=== PATIENT | female | born 1955 | race Caucasian/White ===

== ENCOUNTER 2017-10-21 13:21 | Observation (INO) | payer MEDICARE ==
[2017-10-21] MEDS ORDERED: NS 0.9% 1000 ML* 1,000 ML IV ONE (13:58)
--- NOTE | 2017-10-21 14:25 | RAD ---
Indication: Dizziness, expressive aphasia improving. Code ocampo. Comparison: No relevant prior exams available on the [facility] for comparison. Technique: Noncontrast CT vertex of skull through foramen magnum. Report: The sulci, ventricles, and basal cisterns are normal for age. He matter white matter differentiation is preserved without evidence for edema. No intra or extra axial hemorrhage, mass, or fluid collection detected. Unremarkable visualized orbital contents. Unremarkable calvarium and skull base. Unremarkable scalp. The visualized paranasal sinuses and mastoid air spaces are clear. IMPRESSION: Negative for intracranial hemorrhage or CT stigmata of ischemic stroke. Negative exam. Results discussed with Dr. Larios 10/21/2017 2:16 PM EST
[2017-10-21 14:38] LABS: ABS Basophils 0 10^3/ul (0-0.2); ABS Eosinophils 0.1 10^3/ul (0-0.6); ABS Lymphocytes 2.7 10^3/ul (1.0-4.8); ABS Monocytes 0.6 10^3/ul (0-0.8); ABS Nucleated RBC 0 10^3/ul; Eosinophil % 1.3 % (0-6); Hematocrit 38 % (35-47); Hemoglobin 12.8 g/dl (12.0-16.0); Mean Corpuscular HGB Conc 33 g/dl (31-36); Mean Corpuscular Hemoglobin 30 pg (27-31); Mean Corpuscular Volume 90 fL (80-97); Mean Platelet Volume 8 um3 (7.4-10.4); Nucleated Red Blood Cells % 0; Platelet Count 300 10^3/ul (150-450); Red Blood Count 4.22 10^6/ul (4.0-5.4); Red Cell Distribution Width 15 % (10.5-15); White Blood Count 6.4 10^3/ul (3.5-10.8)
[2017-10-21] MEDS ORDERED: Ondansetron ODT TAB* 4 MG PO ONE (14:42)
[2017-10-21 14:47] LABS: INR 0.91 (0.77-1.02)
[2017-10-21 14:52] LABS: EGFR Non-African American 75.5 (>60)
[2017-10-21] MEDS ORDERED: LORazepam INJ* 2 MG/ML 1 ML VIAL IV PUSH ONE ×2 (15:23→20:56)
--- NOTE | 2017-10-21 15:41 | RAD ---
HISTORY: Neurological changes COMPARISONS: None VIEWS: 1: frontal portable view of the chest at 3:12 PM FINDINGS: LINES AND TUBES: None. CARDIOMEDIASTINAL SILHOUETTE: The cardiomediastinal silhouette is normal for portable technique. PLEURA: The costophrenic angles are sharp. No pleural abnormalities are noted. LUNG PARENCHYMA: The lungs are clear. ABDOMEN: The upper abdomen is clear. There is no subphrenic gas. BONES AND SOFT TISSUES: No bone or soft tissue abnormalities are noted. The patient is status post anterior cervical fusion. IMPRESSION: NO ACTIVE CARDIOPULMONARY DISEASE.
[2017-10-21 15:49] LABS: Urine Appearance Clear; Urine Blood Negative (Negative); Urine Color Yellow; Urine Ketones Negative (Negative); Urine Protein Negative (Negative); Urine Specific Gravity 1.009 (1.010-1.030); Urine Urobilinogen Negative (Negative)
[2017-10-21] MEDS ORDERED: Iohexol 350* (CONTRAST) 500 ML MDV IV ONE (16:02)
--- NOTE | 2017-10-21 16:32 | RAD ---
HISTORY: Speech difficulty, stroke COMPARISONS: Head CT dated October 21, 2017 TECHNIQUE: Multiple contiguous axial CT scans were obtained of the head and neck after the administration of nonionic intravenous contrast timed to the systemic arterial phase of contrast enhancement. Coronal and sagittal multiplanar reformations are submitted for review. Multiple 3-D maximum intensity projection reconstructions are also submitted for review. FINDINGS: CTA NECK: AORTIC ARCH: There is a normal three-vessel branching pattern of the aortic arch. There is no ostial or proximal stenosis of the cephalic great vessels. RIGHT VERTEBRAL ARTERY: The right vertebral artery is patent along its course, without stenosis. LEFT VERTEBRAL ARTERY: The left vertebral artery is patent along its course, without stenosis. DOMINANCE: The vertebral arteries are codominant. RIGHT COMMON CAROTID ARTERY: The right common carotid artery is patent. The right carotid bifurcation occurs at C3-C4 RIGHT INTERNAL CAROTID ARTERY: There is no right internal carotid artery stenosis by NASCET criteria. RIGHT EXTERNAL CAROTID ARTERY: The right external carotid artery is unremarkable. LEFT COMMON CAROTID ARTERY: The left common carotid artery is patent. The left carotid bifurcation occurs at C3-C4 LEFT INTERNAL CAROTID ARTERY: There is no left internal carotid artery stenosis by NASCET criteria. LEFT EXTERNAL CAROTID ARTERY: The left external carotid artery is unremarkable. VENOUS CIRCULATION: The venous system is unremarkable. SALIVARY GLANDS: The parotid glands, submandibular glands, sublingual glands are normal. NASAL CAVITY/NASOPHARYNX: The nasal cavity and nasopharynx are normal. ORAL CAVITY/OROPHARYNX: The oral cavity is obscured by streak artifact from dental amalgam. The visualized oral cavity and oropharynx are unremarkable. LARYNGEAL APPARATUS/HYPOPHARYNX: The laryngeal apparatus and hypopharynx are normal. UPPER AIRWAY/UPPER ESOPHAGUS: The visualized upper airway and esophagus are normal. LUNG APICES: The lung apices are clear. THYROID GLAND: There is a 0.6 cm nodule of the right thyroid. LYMPH NODES: There is no lymphadenopathy by size criteria. BONES AND SOFT TISSUES: The patient is status post anterior cervical fusion. CTA HEAD: INTRACRANIAL CIRCULATION: There is no aneurysm, vascular malformation, occlusion, or stenosis of the visualized intracranial circulation. The anterior communicating artery complex is clear. Bilateral posterior communicating arteries are identified. VENOUS CIRCULATION: The venous system is unremarkable. PERFUSION: There is no obvious parenchymal perfusion deficit. HEMORRHAGE/INFARCT: There is no hemorrhage or acute infarct. MASSES/SHIFT: There is no mass or shift. EXTRA-AXIAL SPACES: There are no extra-axial fluid collections. SULCI AND VENTRICLES: The sulci and ventricles are normal in size and position for the patient's stated age. CEREBRUM: There are no focal parenchymal abnormalities. BRAINSTEM: There are no focal parenchymal abnormalities. CEREBELLUM: There are no focal parenchymal abnormalities. PARANASAL SINUSES: The paranasal sinuses are clear. ORBITS: The orbits are unremarkable. BONES AND SOFT TISSUE: No bone or soft tissue abnormalities are noted. OTHER: There is no abnormal enhancement. IMPRESSION: 1. NO INTERNAL CAROTID ARTERY STENOSIS BY NASCET CRITERIA. 2. NO ANEURYSM, VASCULAR MALFORMATION, OCCLUSION, OR STENOSIS OF THE VISUALIZED INTRACRANIAL CIRCULATION. CPT II Codes: 3100F
[2017-10-21] MEDS: Aspirin EC Low Dose* 81 MG TAB.EC PO SCH (16:54)
[2017-10-21] MEDS ORDERED: Acetaminophen TAB* 325 MG PO PRN (19:50)
[2017-10-21] MEDS ORDERED: Ondansetron INJ* 2 MG/ML VIAL IV PRN (19:50)
[2017-10-21] MEDS ORDERED: Al Hydrox/Mg Hydrox/Simet LIQ* 30 ML UDC PO PRN (19:50)
[2017-10-21] MEDS ORDERED: Magnesium Hydroxide LIQ* 30 ML UDC PO PRN (19:50)
--- NOTE | 2017-10-21 20:11 | CONS ---
CONSULTATION REPORT: DATE OF CONSULT: 10/21/17 CURRENT LOCATION: ED bed 4. REASON FOR CONSULTATION: Speech difficulties, dizziness, headache. HISTORY OF PRESENT ILLNESS: Ms. Deluca is a 62-year-old female. She has a history of hypothyroidism, chronic neck pain, depression, and prior TIAs last year. She presents to the hospital today with acute onset of some speech difficulties, feeling very lightheaded and dizzy, and some nausea and headache. The patient reports that she has a history of TIAs in the past, she had 3 total in September, October, and November 2016. At that time, she notes that she had difficulty speaking and felt lightheaded. The symptoms resolved spontaneously. Apparently, she went to a stroke center in [place], but was not put on aspirin. The etiology of her symptoms is unclear to me, although she called them a TIA. I do not have the workup available at this time. She does have a history of chronic neck problems, has had surgery in the past and she states that at least one of the TIAs, there were some concern that it may have been secondary to her neck. She also states that she has had a heart attack in the past, but is unclear on the details and states "I missed it." She was in her usual state of health, save for some headaches which she has regularly over the last 5 or 6 years. She has traveled from [place] to see her son in [place]. The last time that she was known normal was at approximately 12: 30, at that time she was talking to her son on the phone. She landed and shortly thereafter became very lightheaded and dizzy. She states that this is how she feels when her blood pressure drops. She started to notice difficulty with her speech, producing words and felt like she was slurring some of her words. She also had difficulty standing and walking. The symptoms persisted and in the field, EMS apparently measured her blood pressures and stated that it was low in the 80s/30s per the patient. Since her arrival in the ED, she has improved somewhat. Her speech is much better. She feels like her symptoms are slowly resolving. She continues to have some difficulty with word finding at times, but overall states that her speech is much better. In fact, she states that when she was admitted to the hospital 3 times in the past, her speech was much worse than it is now. She also states that her headache persists, severe in nature, frontal, generalized pain. She has some photophobia and some nausea. No vomiting. She also states that she still is "weird" on her right side, although she is unable to fully characterize this. NIH stroke scale calculated at the time of my examination is 2. She had some very subtle dysarthria, which has improved since I have been at her bedside. She also had some mild sensory loss on the right, she states approximately 10% loss compared to the left, it is in the arm and leg. No facial symptoms. Her son arrived and is at the bedside and states that her speech seems a little bit slower, but overall normal. She denies any vision changes, vision loss or any hearing problems. She denies any left-sided symptoms. She does feel generally weak all over. She feels particularly weak when she stands up. She feels somewhat dizzy and lightheaded. Denies any chest pain, any shortness of breath , any abdominal pain. She denies any musculoskeletal aches or pains. No recent illnesses. No fevers, chills, night sweats. She did report feeling very cold and clam[place] in the airport today at the time of her symptoms. She notes no palpitations. No falls or head trauma. She has otherwise been in her usual state of health. PAST MEDICAL HISTORY: As noted above, includes: 1. History of cervical spine disease, status post laminectomy. 2. History of chronic vaginal pain. 3. History of depression. 4. History of TIAs. 5. She has had right hip surgery as well approximately 6 months ago. MEDICATIONS: At home, include: 1. Tylenol. 2. Tramadol. 3. Remeron. 4. Meloxicam. 5. Gabapentin. 6. Effexor. 7. She takes Valium at night to help her sleep. She states she takes that every night. ALLERGIES: To SULFA DRUGS. FAMILY HISTORY: Significant for father, who had a heart attack in his 50s. She does have some grandparents that had strokes in their 80s. Otherwise, denies any family history of neurologic problems. SOCIAL HISTORY: She is retired. She lives in [place] with her sister. She smokes approximately 4 cigarettes per day. Approximately 20 years ago, she smoked more, but cut it back to 4 cigarettes a day then. She denies any alcohol or drug use. She has a son living here in [place]. REVIEW OF SYSTEMS: In 14 organ systems as noted above, otherwise negative. PHYSICAL EXAMINATION: Vital Signs: Temperature of 98.7, blood pressure 115/70 to 108/61 to 108/61, respiratory rate of 16, pulse rate 79 to 80, satting 97%. In general, she is a well-nourished, well-developed female, lying in the [facility]. She is pleasant, well dressed, well groomed. HEENT: She is normocephalic, atraumatic. Sclerae are anicteric. Mucous membranes are moist. Oropharynx is clear. Nares are patent. Neck is supple. No thyromegaly. No carotid bruits. No meningismus. Chest: Clear to auscultation bilaterally. Cardiovascular: Regular rate and rhythm without murmurs, gallops, or rubs. Abdomen: Nontender, nondistended. Extremities: There is no clubbing, cyanosis or edema. She has a well-healed scar over her right hip. Skin is warm and dry. On neurologic exam, she is awake, alert. She is oriented x3. Her speech is fluent. There is very subtle dysarthria with some word finding difficulties and occasional slurring of certain words, but not consistent. Her recall of recent and remote events is intact. Her mood is dysthymic. Affect, mood congruent. Cranial nerves II through XII. Pupils are equally round and reactive to light. Extraocular muscles are intact. There is no nystagmus or diplopia noted. Visual byrd are full to confrontation and finger counting. Face is symmetric. Facial sensation is intact. Tongue is midline. Palate raises symmetrically. Hearing is intact bilaterally. Sternocleidomastoid and trapezius are 5/5. Motor Exam: She spontaneously moves all extremities antigravity 5/5. There is no drift in the upper or lower extremities. She has good resistance and good tone and bulk. Sensation: She states there is a 10% loss of light touch and pinprick on the right side arm and leg versus the left, this is improved. DTR are 1+ and symmetric in the upper extremities, 2+ at the patella, 1+ at the ankles. Equivocal Babinski's. [id number] and rapid alternating movements are intact without tremor. There is no resting tremor. No dysdiadochokinesia present. Gait: I did stand her up, she felt lightheaded at the time of standing, but she was able to ambulate several steps and then sat back down. She does not feel particularly weak on one side or the other, but does feel "odd" on her right side. DIAGNOSTIC STUDIES/LAB DATA: CT scan, I did review the images. I see no evidence of intracranial bleeding or acute issues. Lab work includes a glucose of 109. CBC with diff significant for monocyte percent of 9.6, otherwise intact. INR of 0.91. PTT of 40.7. Chemistry: BUN and creatinine of 23.4, glucose of 109, triglycerides of 328, cholesterol 238, LDL of 138, HDL of 34.2. ASSESSMENT AND PLAN: Ms. Deluca is a 62-year-old female with a history of multiple "TIAs" in the past, in September, October, and November 2016. In all 3 instances, she presented to the hospital feeling lightheaded with difficulty with her speech, it resolved spontaneously. She states that she had a workup at a stroke center last year. Interestingly, she was not on aspirin at the time of her presentation. She states that she takes it occasionally for her headaches. She does have a history of migrainous type headaches as well that had been ongoing for several years. Currently, has a headache with some photophobia and some nausea. She notes some difficulty with her speech today, lightheadedness, and felt like her blood pressure was low. The speech has improved dramatically since she first became symptomatic at the airport. This happened at approximately 12:30. She also notes some mild sensory loss on the right arm and leg. NIH stroke scale when I saw her was 2. She has made much improvement since her initial presentation and continues to improve. Her son was at the bedside. We did discuss the risks and benefits of tPA and we felt that since she is improving significantly, the risks of tPA outweigh the benefits at this point. The plan will be to admit her to the hospital for further stroke work. I am going to get an MRI of her brain. We will give her Ativan for claustrophobia. We will check a CT angiogram. We will check echocardiogram. Check lab work to rule out reversible causes of stroke. We will admit her to [address] [place] [address] and keep her on telemetry to look for any evidence of arrhythmia. I will treat her headache symptomatically for now. We will do a bedside swallowing test and if she passes, she can have a diet. We will go ahead and start a baby aspirin now and depending on her workup, likely start a statin, although I will hold for now. We will continue to monitor her closely and make further recommendations as necessary. Thank you for the opportunity to participate in her care. [id number]/[facility] #: [id number] PERLITA
[2017-10-21] MEDS ORDERED: LORazepam INJ* 2 MG/ML 1 ML VIAL ONE (20:59)
[2017-10-21] MEDS ORDERED: Temazepam CAP* 15 MG PO SCH (21:00)
--- NOTE | 2017-10-21 21:52 | RAD ---
HISTORY: Numbness and difficulty with speech COMPARISONS: Same day CTA head and neck TECHNIQUE: The following sequences were obtained of the head: Sagittal T1-weighted images, axial T2-weighted images, axial FLAIR images, axial susceptibility weighted images, axial T1-weighted images. Additionally, axial diffusion-weighted images were obtained with calculated apparent diffusion coefficients.. FINDINGS: HEMORRHAGE/INFARCT: There is no hemorrhage or acute infarct. MASSES/SHIFT: There is no mass or shift. EXTRA-AXIAL SPACES/MENINGES: There are no extra-axial fluid collections. SULCI AND VENTRICLES: The sulci and ventricles are normal in size and position for the patient's stated age. CEREBRUM: Is a mild degree of periventricular increased T2 intensity with scattered T2 bright foci seen on the FLAIR imaging in the subcortical white matter tracts of the centrum semiovale. There are otherwise no large focal lesions. BRAINSTEM: There are no focal parenchymal abnormalities. CEREBELLUM: There are no focal parenchymal abnormalities. The cerebellar tonsils are normal in size and position. SELLA: The sella is normal. PINEAL: The pineal region is clear. CP ANGLE/TEMPORAL BONES: The labyrinthine structures are grossly normal. VESSELS: Normal flow-voids are noted within the visualized vertebral vasculature. DIFFUSION ABNORMALITIES: There are no diffusion abnormalities. PARANASAL SINUSES/MASTOIDS: The paranasal sinuses are clear. ORBITS: The orbits are unremarkable. BONES AND SOFT TISSUE: No bone or soft tissue abnormalities are noted. IMPRESSION: MRI FINDINGS ARE MOST CONSISTENT WITH MILD MICROVASCULAR DISEASE.
--- NOTE | 2017-10-21 22:08 | HP ---
HISTORY AND PHYSICAL: DATE OF ADMISSION: 10/21/17 PRIMARY CARE PROVIDER: No primary care provider listed. ATTENDING PHYSICIAN WHILE IN THE HOSPITAL: Dr. Radha Nevarez * (dictated by Leida Jaquez, MIKE). CHIEF COMPLAINT: Difficulty speaking. HISTORY OF PRESENT ILLNESS: Ms. Deluca is a 62-year-old female that presented to the emergency room today with acute onset of difficulty speaking, headache, dizziness, and difficulty walking. Ms. Deluca carries a history of depression , chronic neck pain, history of vaginal pain, history of migraines with photophobia/nausea, and history of a TIA last year occurring in September, October, and November of 2016. She reports that she was on a flight from [place] and flew from [place] to [place]. She got off the plane feeling in her normal state of health with no problems. She contacted her son at approximately 12:30. She continued to be in her normal state of health. Shortly after that, she got up to walk to the bathroom and was unable to walk, was walking into the wall, had difficulty talking. Bystanders saw and reported to the staff who then reported to paramedics and she was brought to the emergency room for further evaluation. She states at that time, she was having difficulty finding words and that her speech was slurred. She states that she was dizzy and lightheaded and had weakness in her legs. While in the emergency room, her speech improved and is almost to baseline. She is conversing without any difficulty. She denied any chest pain, shortness of breath, or abdominal pain. Denied any fever or chills, denied any night sweats, denied any palpitations. Denies any recent falls or head injuries. Denies any loss of consciousness. We were contacted by the emergency room for evaluation of possible TIA symptoms. The patient was seen by Neurology, Dr. Purvis, in the emergency room. PAST MEDICAL HISTORY: 1. Chronic neck pain. 2. Depression. 3. History of TIA occurring in 2017 in September, October, and November. 4. History of vaginal pain with difficulty urinating. 5. Chronic headaches, migraine type with photophobia and nausea. PAST SURGICAL HISTORY: 1. Right hip surgery x2. 2. Left hip replacement. 3. Appendectomy. 4. . 5. Hysterectomy. 6. Cervical fusion. 7. Colon resection. 8. Cholecystectomy. 9. Lumpectomy on the left x2. MEDICATIONS: Current home medications include: 1. Diazepam 10 mg p.o. at 1900. 2. Effexor 225 mg p.o. q.a.m. 3. Acetaminophen 650 mg q.6 hours as needed for pain. 4. Restoril 30 mg p.o. at bedtime. 5. Abilify 10 mg p.o. daily. 6. She also states that she takes Flomax 0.4 mg p.o. daily. ALLERGIES: She has allergy to SULFA. FAMILY HISTORY: Father with a heart attack at age 50. Grandparents, paternal and maternal, with strokes. No diabetes was reported. Cancer: Mother with colon and breast cancer, father with skin cancer, sister with skin cancer who in her 60s, brother with prostate cancer and colon cancer who also . SOCIAL HISTORY: The patient states that she smokes approximately 4 cigarettes a day, prior to that she quit smoking as much approximately 20 years ago. She denies any alcohol or drug use. She is retired. Her surrogate decision maker in the event she is unable to make her own decisions is her son, Rodriguez Massey, phone number is [phone]. REVIEW OF SYSTEMS: There is no documented fever. No significant weight change. There was no double vision. There was no ear discharge. Denies any rhinorrhea. Denies any sore throat. Denies any chest pain. Denies nocturnal dyspnea or orthopnea. There is no abdominal pain. No nausea, vomiting, dysuria , or frequency. She denies any loss of consciousness or head injury. Review of 14 systems was completed and all others are negative. PHYSICAL EXAMINATION GENERAL: At this time, Ms. Deluca is a 62-year-old female, who appears healthy , sitting on the stretcher in the emergency room. She does not appear to be in any acute distress. VITAL SIGNS: Blood pressure 108/61, temperature was 98.7, heart rate was 79, respirations 16, and O2 saturation was 98% on room air. HEENT: Head is atraumatic and normocephalic. Eyes: EOMs are intact. Sclerae anicteric and not pale. Oral mucosa appears moist. NECK: Supple. LUNGS: Clear to auscultation bilaterally. No wheezes, rales, or rhonchi. CARDIAC: Heart S1 and S2. Regular rate and rhythm. There are no rubs or gallops. ABDOMEN: Soft and nontender. Bowel sounds are present x4. EXTREMITIES: Pulses are +2 throughout. She is moving all 4 extremities with 5/ 5 strength. She does report decreased sensation on the right arm and leg, but states that this is minimal. NEUROLOGIC: She is awake and alert and oriented x3. Handgrips are equal, tongue is midline, speech is clear. There is no tremoring or drift noted when raising her arms and legs. Pedal pulses are +2 bilaterally. Pupils are equal and reactive to light. There are no gross focal deficits noted. SKIN: Intact. DIAGNOSTIC STUDIES/LAB DATA: CBC was within normal limits. INR was 0.91, aPTT is 48.7. Chemistry: BMP was within normal limits, with a potassium of 3.8 and sodium 138. Lactic acid was 1.4. Her triglycerides were 328, cholesterol was 238, LDL was 138, HDL was 34.2. TSH was 2.42 and free T4 was 0.78. She had a chest x-ray that showed no active cardiopulmonary disease. She had a CT of the head negative for intracranial hemorrhage or CT stigmata of ischemic stroke, negative exam. She had a CTA of the head. Impression: No internal carotid artery stenosis by NASCET criteria. No aneurysm, vascular malformation, occlusion, or stenosis of visualized intracranial circulation. EKG showed a sinus rhythm at a rate of 78. ASSESSMENT AND PLAN: Ms. Deluca is a 62-year-old female patient that came into the emergency room today with complaints of difficulty speaking and walking , dizziness, lightheadedness, and a headache with acute onset occurring approximately 12:30 p.m. today. We were asked to evaluate her because of her symptoms of transient ischemic attack. She will be admitted under observation for: 1. Possible transient ischemic attack. She will be placed on a baby aspirin 81 mg p.o. daily. She has had a CTA of her head and neck which showed no acute disease. She will have an MRI of the brain which is currently pending. Neurology has consulted and will follow. She will have an echo with bubble study tomorrow. She will be placed on telemetry and monitored for any arrhythmias. 2. Depression. We will continue her on Abilify. 3. Chronic neck pain. We will continue her on Tylenol as needed for pain. 4. History of vaginal pain. We will continue her on her Valium suppositories 10 mg nightly. 5. Chronic dysuria. We will continue her on Flomax. 6. DVT prophylaxis. She will be placed on heparin subcu. She is a full code. 7. Fluids, electrolytes, and nutrition. She can have a regular diet. TIME SPENT: Time spent on this admission was approximately 60 minutes, greater than half that time was spent [id number] with the patient obtaining history and physical, the other half time was spent going over the plan of care and implementing my plan of care. I have discussed this with my attending, Dr. Radha Nevarez; she is in agreement with my plan. LEIDA JAQUEZ, WATCH AND CLOCK REPAIRER [id number]/[facility] #: [id number] PERLITA
[2017-10-21] MEDS: Heparin VIAL(*) 5000 UNITS/ML VIAL (FIVE THOUSAND) SUBCUT SCH (23:15)
--- NOTE | 2017-10-21 23:28 | PN ---
Progress Note - Progress Note Date of Service: 10/21/17 Note: Patient passed bedside nursing eval - then began choking on a sandwich. Patient now NPO and swallow eval ordered.
[2017-10-22] MEDS: Heparin VIAL(*) 5000 UNITS/ML VIAL (FIVE THOUSAND) SUBCUT SCH ×2 (05:03→13:33)
[2017-10-22 05:18] LABS: ABS Basophils 0 10^3/ul (0-0.2); ABS Eosinophils 0.1 10^3/ul (0-0.6); ABS Monocytes 0.4 10^3/ul (0-0.8); ABS Neutrophils 1.9 10^3/ul (1.5-7.7); ABS Nucleated RBC 0 10^3/ul; Eosinophil % 1.6 % (0-6); Hematocrit 33 % (35-47); Hemoglobin 11.1 g/dl (12.0-16.0); Lymphocyte % 45.7 % (25-47); Mean Corpuscular HGB Conc 34 g/dl (31-36); Mean Corpuscular Hemoglobin 30 pg (27-31); Mean Corpuscular Volume 90 fL (80-97); Mean Platelet Volume 8 um3 (7.4-10.4); Nucleated Red Blood Cells % 0.1; Platelet Count 255 10^3/ul (150-450); Red Blood Count 3.65 10^6/ul (4.0-5.4); Red Cell Distribution Width 15 % (10.5-15); White Blood Count 4.4 10^3/ul (3.5-10.8)
[2017-10-22 05:46] LABS: EGFR Non-African American 64.7 (>60)
[2017-10-22] MEDS ORDERED: Tamsulosin CAP* 0.4 MG PO SCH (09:00)
[2017-10-22] MEDS ORDERED: Venlafaxine EXT RELEASE CAP* 75 MG PO SCH (09:00)
[2017-10-22] MEDS ORDERED: ARIPiprazole TAB* 5 MG PO SCH (09:00)
--- NOTE | 2017-10-22 09:02 | PN ---
Subjective Date of Service: 10/22/17 Interval History: She reported some difficulty swallowing solids and liquids overnight. Made NPO , swallowing eval this am. No other new issues. She states that her right sided numbness has improved. Her speech has improved as well. She is unclear this am if the swallowing issues remain. Headache has improved as well. MRI Brain: Reviewed films. no evidence of acute stroke or intracranial abnormalities CTA: Reviewed films. No significant vascular abnormalities Echo: Pending Objective Active Medications: Acetaminophen (Tylenol Tab*) 650 mg PO Q4H PRN PRN Reason: FEVER/PAIN Last Admin: 10/22/17 05:24 Dose: 650 mg Al Hydrox/Mg Hydrox/Simethicone (Maalox Plus*) 30 ml PO Q6H PRN PRN Reason: INDIGESTION Aripiprazole (Abilify Tab*) 10 mg PO DAILY [facility] Aspirin (Aspirin Ec Low Dose*) 81 mg PO DAILY [facility] Last Admin: 10/21/17 16:54 Dose: 81 mg Heparin Sodium (Porcine) (Heparin Vial(*)) 5,000 units SUBCUT Q8HR [facility] Last Admin: 10/22/17 05:03 Dose: Not Given Magnesium Hydroxide (Milk Of Magnesia Liq*) 30 ml PO Q4H PRN PRN Reason: CONSTIPATION Ondansetron HCl (Zofran Inj*) 4 mg IV Q4H PRN PRN Reason: NAUSEA/VOMITING Tamsulosin HCl (Flomax Cap*) 0.4 mg PO DAILY [facility] Temazepam (Restoril Cap*) 30 mg PO BEDTIME [facility] Last Admin: 10/21/17 23:15 Dose: Not Given Venlafaxine HCl (Effexor Xr Cap*) 225 mg PO QAM [facility] Vital Signs 10/21/17 10/21/17 10/21/17 17:30 18:00 18:22 Temperature 98.6 F Pulse Rate 68 73 85 Respiratory 12 10 16 Rate Blood Pressure 112/57 113/64 (mmHg) O2 Sat by Pulse 100 98 99 Oximetry 10/21/17 10/21/17 10/21/17 19:00 20:17 21:00 Temperature 98.9 F Pulse Rate 89 Respiratory 16 16 16 Rate Blood Pressure 111/74 (mmHg) O2 Sat by Pulse 97 Oximetry 10/21/17 10/21/17 10/22/17 21:43 22:30 00:12 Temperature 97.3 F Pulse Rate 84 Respiratory 16 16 20 Rate Blood Pressure 91/32 (mmHg) O2 Sat by Pulse 95 Oximetry 10/22/17 10/22/17 10/22/17 00:19 03:12 03:22 Temperature 98.9 F Pulse Rate 77 Respiratory 20 Rate Blood Pressure 102/68 90/49 96/62 (mmHg) O2 Sat by Pulse 96 Oximetry 10/22/17 10/22/17 05:22 07:13 Temperature 97.8 F Pulse Rate 74 Respiratory 16 Rate Blood Pressure 90/64 (mmHg) O2 Sat by Pulse 93 95 Oximetry Oxygen Devices in Use Now: None Neurology Exam: General: Awake, Alert, Oriented x3 HEENT: Normocephelic/atraumatic, sclera anicteric, mucous membranes moist Neck: Supple Chest: Clear to auscultation bilaterally Cardiovascular: Regular rate and rhythm without murmurs, rubs, gallops Abdomen: Soft, nontender/nondistended Extremities: No clubbing, cyanosis, or edema Skin: Warm and dry without lesions Neurological Findings: Awake, Alert, Oriented x3 Speech: fluent without significant dysarthria, repetition intact Cranial Nerve: PEERL, EOM intact, VFF, no nystagmus, face symmetric bilaterally , facial sensation intact, hearing intact to finger rub bilaterally, palate elevates symmetrically, tongue midline Motor: 5/5 throughout, proximal and distal extremities x4 tone/bulk normal, no drift. No fasiculations in the arms/legs, no tongue fasiculations or scalloping. No fatiguing after multiple reps at the deltoids. Sensation: intact to LT/PP bilaterally upper and lower extremities Deep Tendon Reflex: 2+ symmetric in the upper/lower extremities, Babinski - equivocal Finger to nose, rapid alternating movements intact without tremor. No postural tremor Result Diagrams: 10/22/17 05:05 10/22/17 05:05 Assessment/Plan 62 year old with a history of history of prior TIAs X 3 all of which involved speech difficulties, work-up reportedly negative, on no anti-platelet. History of migraine headaches with a headache at the time of presentation. Presented to the ER yesterday with acute onset dizziness, lightheadedness, some right sided numbness and some speech difficulty. Last night some swallowing difficulty. Symptoms have improved. Stroke work up at this point negative: 1. Follow up Echocardiogram 2. Continue ASA 3. Recommend follow up with PCP as outpatient for better cholesterol control. Consider statin 4. Low blood pressures, no evidence of hypertension. She apparently has a history of symptomatic low blood pressures which could have contributed to her presentation and symptoms. Watch for orthostasis 5. History of migraine headaches: complicated migraines in the differential 6. Swallowing difficulty: unclear etiology, no compelling evidence of MG or Motor neuron disease: consider out patient workup including EMG/NCS, MG antibodies, GI consultation for swallowing issues 7. Possibly home today if workup negative and swallowing is ok.
[2017-10-22] MEDS: Aspirin EC Low Dose* 81 MG TAB.EC PO SCH (10:26)
--- NOTE | 2017-10-22 10:50 | PN ---
Subjective Date of Service: 10/22/17 Interval History: patient states that her speech is at baseline, No complaints, Headache is gone. Denies chest pain or shortness of breath . Denies N/V/D Family History: Unchanged from Admission Social History: Unchanged from Admission Past Medical History: Unchanged from Admission Objective Active Medications: Acetaminophen (Tylenol Tab*) 650 mg PO Q4H PRN PRN Reason: FEVER/PAIN Last Admin: 10/22/17 05:24 Dose: 650 mg Al Hydrox/Mg Hydrox/Simethicone (Maalox Plus*) 30 ml PO Q6H PRN PRN Reason: INDIGESTION Aripiprazole (Abilify Tab*) 10 mg PO DAILY [facility] Last Admin: 10/22/17 10:28 Dose: 10 mg Aspirin (Aspirin Ec Low Dose*) 81 mg PO DAILY [facility] Last Admin: 10/22/17 10:26 Dose: 81 mg Heparin Sodium (Porcine) (Heparin Vial(*)) 5,000 units SUBCUT Q8HR [facility] Last Admin: 10/22/17 05:03 Dose: Not Given Magnesium Hydroxide (Milk Of Magnfuentes Liq*) 30 ml PO Q4H PRN PRN Reason: CONSTIPATION Ondansetron HCl (Zofran Inj*) 4 mg IV Q4H PRN PRN Reason: NAUSEA/VOMITING Tamsulosin HCl (Flomax Cap*) 0.4 mg PO DAILY [facility] Last Admin: 10/22/17 10:26 Dose: 0.4 mg Temazepam (Restoril Cap*) 30 mg PO BEDTIME [facility] Last Admin: 10/21/17 23:15 Dose: Not Given Venlafaxine HCl (Effexor Xr Cap*) 225 mg PO QAM [facility] Last Admin: 10/22/17 10:26 Dose: 225 mg Vital Signs - 8 hr 10/22/17 10/22/17 10/22/17 03:12 03:22 05:22 Temperature 98.9 F Pulse Rate 77 Respiratory 20 Rate Blood Pressure 90/49 96/62 (mmHg) O2 Sat by Pulse 96 93 Oximetry 10/22/17 07:13 Temperature 97.8 F Pulse Rate 74 Respiratory 16 Rate Blood Pressure 90/64 (mmHg) O2 Sat by Pulse 95 Oximetry Oxygen Devices in Use Now: None Appearance: appears comfortable sitting in bed Eyes: No Scleral Icterus Ears/Nose/Mouth/Throat: Clear Oropharnyx, Mucous Membranes Moist Neck: NL Appearance and Movements; NL JVP, Trachea Midline Respiratory: Symmetrical Chest Expansion and Respiratory Effort, Clear to Auscultation Cardiovascular: NL Sounds; No Murmurs; No JVD, RRR, No Edema Abdominal: NL Sounds; No Tenderness; No Distention Extremities: No Edema, No Clubbing, Cyanosis Skin: No Rash or Ulcers, No Nodules or Sclerosis Neurological: Alert and Oriented x 3 Nutrition: Taking PO's Result Diagrams: 10/22/17 05:05 10/22/17 05:05 Assess/Plan/Problems-Billing 62 year old with a history of history of prior TIAs X 3 all of which involved speech difficulties, work-up reportedly negative, on no anti-platelet. History of migraine headaches with a headache at the time of presentation. Presented to the ER yesterday with acute onset dizziness, lightheadedness, some right sided numbness and some speech difficulty. Last night some swallowing difficulty. Symptoms have improved. Stroke work up at this point negative: - Patient Problems (1) TIA (transient ischemic attack) Status: Acute Comment: ECHO- pending MRI- CTA~ negative Speech has returned to baseline per patient~ states she is having mild difficult with B, L, t and s's. will start baby ASA daily Continue telemerty monitoring resume regular diet~ speech eval completed (2) Hypercholesteremia Status: Acute Code(s): E78.00 - PURE HYPERCHOLESTEROLEMIA, UNSPECIFIED SNOMED Code(s): 17068291 Comment: ASCVD ~10-year risk of atherosclerotic cardiovascular disease 9.7% Will consider starting statin therapy ~ will start lipitor 20 mg po daily (3) Depression Status: Acute Code(s): F32.9 - MAJOR DEPRESSIVE DISORDER, SINGLE EPISODE, UNSPECIFIED SNOMED Code(s): 60051384 Comment: continue abilify and effexor (4) Chronic neck pain Status: Acute Code(s): M54.2 - CERVICALGIA; G89.29 - OTHER CHRONIC PAIN SNOMED Code(s): 4509083870374 Comment: tylenol as needed for pain (5) DVT prophylaxis Status: Acute Code(s): PQN0504 - SNOMED Code(s): 280545858 Comment: HSQ (6) Full code status Status: Acute Code(s): Z78.9 - OTHER SPECIFIED HEALTH STATUS SNOMED Code(s) : 932839849 Status and Disposition: discharge home
--- NOTE | 2017-10-22 14:10 | ECHO ---
Patient: JAYDEN BOB [facility] Rec#: [id number] : 1955 Date: 10/22/2017 Age: 62y Height: 172.72 cm / 68.0 in Weight: 72.12 kg / 159.0 lbs Sex: F BSA: 1.85 Room#: 439 Admit Date#: 10/21/2017 Type: Inpatient Referring: Radha Nevarez MD Reading: Priscilla Lora MD Iuss Analyst[facility] Tran[facility]horacic Echocardiogram Indication: CVA/TIA BP: 90/64 HR: 69 Rhythm: NSR with PACs Findings History: TIA x3 in 2017, hypotension, smoker. Technical Comments: The study quality is fair. The study is technically limited due to the patient's smoking history. Completed at 1325. Left Ventricle: The left ventricular chamber size is normal. There is no left ventricular hypertrophy. Global left ventricular wall motion and contractility are within normal limits. There is normal left ventricular systolic function. The estimated ejection fraction is 55-60%. There is no consistent Doppler evidence of clinically significant diastolic dysfunction. Left Atrium: The left atrial chamber size is normal. Right Ventricle: The right ventricle wall thickness is mildly increased. The right ventricular cavity size is normal. The right ventricular global systolic function is normal. Right Atrium: The right atrium is mildly dilated. A patent foramen ovale is demonstrated by agitated contrast. Aortic Valve: The aortic valve is trileaflet. There is no evidence of aortic valve thickening. There is a trace of aortic regurgitation. There is no evidence of aortic stenosis. Mitral Valve: There is posterior mitral annular calcification. The mitral valve leaflets are mildly thickened. There is a trace of mitral regurgitation. There is no evidence of mitral stenosis. Tricuspid Valve: The tricuspid valve leaflets are normal. There is trace tricuspid regurgitation. Unable to estimate the right ventricular systolic pressure. There is no tricuspid stenosis. Pulmonic Valve: The pulmonic valve appears normal. There is a trace pulmonic regurgitation. There is no pulmonic stenosis. Pericardium: There is no significant pericardial effusion. Aorta: There is no dilatation of the ascending aorta. There is no dilatation of the aortic arch. The aortic root is normal in size. Pulmonary Artery: The main pulmonary artery appears normal. Venous: The inferior vena cava appears normal in size. There is a greater than 50% respiratory change in the inferior vena cava dimension. Contrast: Normal saline was used as contrast for the bubble study. Images 3 and 4. Intravenous contrast was used to help determine presence of intracardiac shunting. Conclusions Global left ventricular wall motion and contractility are within normal limits. The estimated ejection fraction is 55-60%. The right ventricle wall thickness is mildly increased and systolic function is normal. The right atrium is mildly dilated. A patent foramen ovale is demonstrated by agitated contrast. All valves show good function. There is a trace of aortic regurgitation. There is a trace of mitral regurgitation. There is trace tricuspid regurgitation. No prior echo to compare. Measurements Name Value Normal Range RVIDd (AP) 2D 2.6 cm (0.9 - 2.6) RVDdMajor (2D) 3.5 cm (2.2 - 4.4) RVAW (2D) 0.6 cm (0.2 - 0.5) RAd ISD 4CH 5.1 cm (3.4 - 4.9) RA (A4C)W 3.7 cm (2.9 - 4.6) IVSd (2D) 0.8 cm (0.6 - 1) LVPWd (2D) 0.8 cm (0.6 - 1) LVIDd (2D) 4.1 cm (3.6 - 5.4) LVIDs (2D) 2.7 cm - LV FS (2D) 34 % (25 - 45) Aortic Annulus 2 cm (1.4 - 2.6) Ao root diameter (2D) 3.1 cm (2.1 - 3.5) Ascending Ao 3.1 cm (2.1 - 3.4) Aortic arch 2.2 cm (1.8 - 3.4) LA dimension (AP) 2D 2.7 cm (2.3 - 3.8) LAd ISD 4CH 5 cm (2.9 - 5.3) LA ISD 4CH W 4.5 cm (2.5 - 4.5) Name Value Normal Range LA ESV SP 4CH (A/L) 39 ml - LA ESV SP 2CH (A/L) 46 ml - LA ESV BP (A/L) 42 ml - LA ESV BP (A/L) index 23 ml/m2 - LA ESV SP 4CH (MOD) 35 ml - LA ESV SP 2CH (MOD) 45 ml - Name Value Normal Range MV E-wave Vmax 0.82 m/sec - MV deceleration time 204.8 msec - MV A-wave Vmax 0.7 m/sec - MV E:A ratio 1.16 ratio - LV septal e' Vmax 0.08 m/sec - LV lateral e' Vmax 0.09 m/sec - LV E:e' septal ratio 10 ratio - LV E:e' lateral ratio 8.89 ratio - Name Value Normal Range AV Vmax 1.31 m/sec - AV VTI 26.07 cm - AV peak gradient 6.9 mmHg - AV mean gradient 3.1 mmHg - LVOT Vmax 0.88 m/sec - LVOT VTI 18.44 cm - LVOT peak gradient 3.15 mmHg - LVOT mean gradient 1.42 mmHg - AYAN Vmax 0.65 m/sec - Name Value Normal Range IVC diameter 1.7 cm - Name Value Normal Range PV Vmax 0.56 m/sec - PV peak gradient 1.26 mmHg -
[2017-10-22 16:52] VITALS: BP 119/40
--- NOTE | 2017-10-23 11:07 | ED ---
Pravin Lyons Stephanie, scribed for Gerald Larios MD on 10/21/17 at 1407 . Dizziness - HPI Summary HPI Summary: The pt is a 62 y/o F BIBA to the ED with c/o dizziness that began at 12:30 today s/p airplane landing. Pt states she feels removed from reality, has trouble ambulating and she feels she is having trouble speaking and getting the correct words out. She states other people noticed she was walking unusually. The pt reports a history of hypotension. Symptoms include PATINO, lightheadedness and nausea. The pt developed CP and palpation after receiving EKG. The pt states that she smokes 4 cigarettes a day. - History Of Current Complaint Stated Complaint: DIZZY Time Seen by Provider: 10/21/17 13:45 Hx Obtained From: Patient, EMS Onset/Duration: Still Present, Suddenly Timing: Constant Character: Lightheaded, Dizzy Aggravating Factor(s): Nothing Alleviating Factor(s): Nothing Associated Signs And Symptoms: Positive: Nausea, Chest Pain, Palpitations, Unsteady Gait, Other: - PATINO, lightheadedness, difficulty with speech - Allergies/Home Medications Allergies/Adverse Reactions: Allergies Allergy/AdvReac Type Severity Reaction Status Date / Time Sulfa drugs Allergy Hives Uncoded 04/13/14 21:48 Home Medications: Home Medications ARIPiprazole TAB* [Abilify TAB*] 10 mg PO DAILY 10/21/17 [History Confirmed ] Acetaminophen TAB* [Tylenol TAB*] 325 - 650 mg PO Q6HR PRN 10/21/17 [History Confirmed 10/21/17] Diazepam TAB(*) [Valium TAB(*)] 10 mg PO 1900 10/21/17 [History Confirmed ] Temazepam CAP* [Restoril CAP*] 30 mg PO BEDTIME 10/21/17 [History Confirmed ] Venlafaxine EXT RELEASE CAP* [Effexor Xr CAP*] 225 mg PO QAM 10/21/17 [History Confirmed 10/21/17] PMH/Surg Hx/FS Hx/Imm Hx Endocrine/Hematology History: Denies: Hx Diabetes, Hx Thyroid Disease Cardiovascular History: Reports: Hx Hypotension Denies: Hx Hypertension Respiratory History: Denies: Hx Asthma, Hx Chronic Obstructive Pulmonary Disease (COPD) GI History: Denies: Hx Ulcer - Surgical History Surgery Procedure, Year, and Place: 3 level cervical neck fusion, lumpectomy x2 left breast, gallbladder, appendectomy, 3 laparotomies, colon resection, C section Infectious Disease History: Reports: Hx Shingles - 1978 Denies: Hx Hepatitis, Hx Human Immunodeficiency Virus (HIV), 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, History Other Infectious Disease - Family History Known Family History: Positive: Unknown - Reviewed and non-contributory - Social History Occupation: Disabled Lives: Alone Alcohol Use: None Substance Use Type: Reports: Excessive Caffeine, Prescribed Smoking Status (MU): Light Every Day Tobacco Smoker Type: Cigarettes Amount Used/How Often: 6 cigs per day Length of Time of Smoking/Using Tobacco: 12 years Have You Smoked in the Last Year: Yes Review of Systems Negative: Fever, Chills Negative: Erythema Negative: Sore Throat Positive: Palpitations, Chest Pain Negative: Shortness Of Breath, Cough Positive: Nausea. Negative: Abdominal Pain, Vomiting Negative: dysuria, hematuria Negative: Myalgia, Edema Negative: Rash Neurological: Other - Dizziness, unsteady gait, speech difficulty, lightheadedness Positive: Headache All Other Systems Reviewed And Are Negative: Yes Physical Exam - Summary Physical Exam Summary: Constitutional: Well-developed, Well-nourished, Alert. (-) Distressed Skin: Warm, Dry HENT: Normocephalic; Atraumatic Eyes: Conjunctiva normal Neck: Musculoskeletal ROM normal neck. (-) JVD, (-) Stridor, (-) Tracheal deviation Cardio: Rhythm regular, rate normal, Heart sounds normal; Intact distal pulses; The pedal pulses are 2+ and symmetric. Radial pulses are 2+ and symmetric. (-) Murmur Pulmonary/Chest wall: Effort normal. (-) Respiratory distress, (-) Wheezes, (-) Rales Abd: Soft. (-) Tenderness, (-) Distension, (-) Guarding, (-) Rebound Musculoskeletal: (-) Edema Lymph: (-) Cervical adenopathy Neuro: Alert, Oriented x3, Strength normal, Cranial nerves II-XII are grossly intact. (-) Dysmetria, (-) Nystagmus, (-) Ataxia by finger to nose testing, (-) Sensory deficit, slight expressive aphasia during conversation. Psych: Mood and affect Normal Triage Information Reviewed: Yes Vital Signs Reviewed: Yes Diagnostics - Laboratory Result Diagrams: 10/21/17 14:30 10/21/17 14:30 Lab Statement: Any lab studies that have been ordered have been reviewed, and results considered in the medical decision making process. - Radiology CXR Xray Interpretation: No Acute Changes Radiology Interpretation Completed By: Radiologist - NO ACTIVE CARDIOPULMONARY DISEASE. - CT Brain CT Interpretation: No Acute Changes CT Interpretation Completed By: Radiologist - Negative for intracranial hemorrhage or CT stigmata of ischemic stroke. Negative exam. Results discussed with Dr. Larios 10/21/2017 2:16 PM EST - EKG 14:04 Cardiac Rate: NL EKG Rhythm: Sinus Rhythm - 78 BPM EKG Interpretation: No STEMI Dizzy Course/Dx - Course Course Of Treatment: Dr. Purvis suggests no TPA as symptoms are improving. He recommends admission for TIA work up. - Diagnoses Provider Diagnoses: TIA (transient ischemic attack) - Provider Notifications Discussed Care Of Patient With: Barry Purvis - Dr. Purvis suggests no TPA as symptoms are improving. He recommends admission for TIA work up. Time Discussed With Above Provider: 15:14 Discharge - Discharge Plan Condition: Stable Disposition: ADMITTED TO [facility] Referrals: No Primary Care Phys,NOPCP [Primary Care Provider] - The documentation as recorded by the Pravin ortega Stephanie accurately reflects the service I personally performed and the decisions made by me, Gerald Larios MD.
--- NOTE | 2017-10-23 18:30 | DS ---
DISCHARGE SUMMARY: DATE OF ADMISSION: 10/21/17 DATE OF DISCHARGE: 10/22/17 PRIMARY CARE PROVIDER: Out of town, is in [place]. ATTENDING PHYSICIAN: Radha Nevarez MD (dictated by Leida Jaquez NP) PRIMARY DIAGNOSES: 1. Transient dizziness, slurred speech. 2. Headache. 3. Hypercholesterolemia. SECONDARY DIAGNOSES: 1. Chronic back pain. 2. Depression. 3. History of transient ischemic attack occurring in 2017 in September, October, and November. 4. History of vaginal pain and difficulty urinating. 5. Chronic headaches, migraine type with photophobia and nausea. STUDIES COMPLETED WHILE IN THE HOSPITAL: She had a CT of the brain on 10/21/17, radiologist's impres alcides: Negative for intracranial hemorrhage or CT stigmata for ischemic stroke, negative exam. She h ad a chest x-ray, no active cardiopulmonary disease. She had an MRI of the brain, radiologist's impr ession: MRI findings are most consistent with mild microvascular disease. CT of the head, radiologist's impression: 1. No internal carotid artery stenosis by NASCET criteria. 2. No aneurysm vascular malformation, occlusion, or stenosis of the visualized intracranial circulat ion. She had a transthoracic echo, conclusion: Global left ventricular wall motion and contractility are within normal limits. Estimated ejection fraction is 55% to 60%. The right ventricle wall is thicken ed, is mildly increased and systolic function is normal. The right atrium is mildly dilated. A avalos nt foramen ovale is demonstrated by agitated contrast. All valves are showing good function. There is trace aortic regurg. There is trace mitral regurgitation. There is trace tricuspid regurgitation . DISCHARGE MEDICATIONS: She will be sent home on aspirin 81 mg p.o. daily and atorvastatin 20 mg p.o. daily. Continued home medications: 1. Effexor 225 mg p.o. q.a.m. 2. Tylenol 650 mg p.o. q. 6 hours as needed for pain. 3. Restoril 30 mg p.o. at bedtime. 4. Abilify 10 mg p.o. at bedtime. 5. Flomax 0.4 mg p.o. daily. 6. Valium 10 mg [place] at night for bladder, pelvic wall relaxation. HISTORY OF PRESENT ILLNESS AND HOSPITAL COURSE: Ms. Deluca is a 62-year-old female that presented t o the emergency room with acute onset of difficulty speaking, headache, dizziness, and difficulty wal tami. Ms. Deluca carries a history of depression, chronic back pain, history of vaginal pain, and h istory of migraines with photophobia and nausea and a history of TIA last year occurring in September, October, and November 2016. She reports that she was on a flight from [place] and flew from [facility] to [place]. She got off the plane. She was in her normal state of health with no problems. She c ontacted her son at approximately 12:30. She continued to be in her normal state of health. Shortly after that, she got up to walk to the bathroom and was unable to walk with walking into the wall, ndiaye d difficulty talking, bystanders saw and reported it to staff who reported to paramedics and brought her to emergency room for further evaluation. She stated at that time she was having difficulty findi ng words and her speech was slurred. She states that she was dizzy and lightheaded and had weakness in her legs. She reports that she has prior history of having hypotension also. She also reports th luanne symptoms when she had TIAs in September, October, and November 2016 all resolved spontaneously. She reports at that time she was seen at a stroke center in [place] but was not put on any aspirin. Th e etiology of her symptoms is unclear. While in the emergency room, her speech improved to almost baseline. She is conversing without any d ifficulty. She denied any chest pain, shortness of breath, or abdominal pain. Denied any fever, chi lls. Denied any night sweats. Denied any palpitations. Denies any recent falls or head injuries. Denies any loss of consciousness. We were contacted by the emergency room for evaluation and possibl e TIA symptoms. The patient was seen by Neurology, Dr. Purvis, in the emergency room. While in the hospital, she was monitored on telemetry. All of her symptoms returned to baseline. He r headache improved with oxygen. She did not have any arrhythmias on the monitor. Given the total r esolution of her symptoms and her negative stroke workup, at this time Ms. Deluca will be discharged home. Ms. Deluca is stable for discharge to home. Vital signs are as follows: Temperature was 98.4, heart rate was 86, respirations 20, O2 saturation 95%, blood pressure 119/40. DISCHARGE PLAN: Ms. Deluca will be discharged home with her son. 1. Activity as tolerated. 2. Continue on heart healthy diet. 3. In regards to her transient dizziness, slurred speech, and difficulty ambulating, suspect this co uld be possibly related to a TIA or could be related to her migraine headaches. We will place her on a baby aspirin as her echo showed a patent foramen ovale. Her cholesterol was high during this admi ssion; triglycerides were 328, cholesterol was 238, LDL was 138, HDL was 34.2. We will place her on atorvastatin 20 mg p.o. daily. Her ASCVD 10 year risk for atherosclerotic cardiovascular disease is 9.7%. These findings were discussed with the patient. She verbalized understanding. FOLLOWUP: We have arranged for a followup here in [place] if she is still in [place] at the time o f that followup. She can follow up with July Sweet on 11/05/17 at 8:45 in the morning. Otherwise , she should follow up with her belt sander when she returns home. She should follow up with her [facility] care provider when she returns to [place]. She also needs to follow up with neurologist when s he returns to [place]. The patient verbalized understanding. The patient was instructed to return t o the emergency room for any changes in mentation, inability to ambulate, one-sided unilateral weakne ss, dizziness, slurred speech, any facial drooping. The patient verbalized understanding. The patie nt was also instructed to return to the emergency room for any chest pain or shortness of breath. This is a summary of her hospitalization. For further details, please see the entire medical record. TIME SPENT: Time spent on this discharge was approximately 60 minutes, greater than half that time w as spent with the patient discussing discharge plans and instructions. CONDITION AT DISCHARGE: Stable. This discharge plan was discussed with my attending, Dr. Radha adan, and she is in agreement with my plan. LEIDA JAQUEZ, HEAD OF CONSERVATION [id number]/[facility] #: [id number]
== END 2017-10-22 17:42 | disposition home or self-care (01) ==
LOC: ED 13:21 → INTOOBSV 17:08 → MEDTELE 17:08
PROVIDERS: ADMIT Internal Medicine; ATTEND Internal Medicine
DX: G45.9 Transient cerebral ischemic attack, unspecified (principal); E78.00 Pure hypercholesterolemia, unspecified; F32.9 Major depressive disorder, single episode, unspecified; M54.2 Cervicalgia; G89.29 Other chronic pain; Z78.9 Other specified health status; R51 Headache; R42 Dizziness and giddiness; Z72.0 Tobacco use; Z98.890 Other specified postprocedural states; Z90.49 Acquired absence of other specified parts of digestive tract
CPT/HCPCS: 36415; 70450; 70496; 70498; 70551; 71045; 80048; 80053; 80061; 81003; 81015; 82607; 82746; 83090; 83605; 84439; 84443; 84484; 85025; 85610; 85730; 86038; 86850; 86900; 86901; 87086; 93005; 93306; 96374; 99285; A9270-GY; G0378; J2060; Q9967